=== PATIENT | male | born 1940 | race Caucasian/White ===

== ENCOUNTER 2018-08-04 03:37 | Emergency (ER) | payer MEDICARE, OTHER ==
[2018-08-04] MEDS ORDERED: Ondansetron PF 4 MG/2 ML Vial ONE (04:44)
[2018-08-04 05:12] LABS: #Lymphocytes 0.9 thou/uL (1.20-3.40); #Neutrophils 16.1 thou/uL (1.40-6.50); %Eosinophils 0.1 % (0.0-10.0); %Lymphocytes 4.9 % (21.0-51.0); %Monocytes 10.4 % (0.0-10.0); %Neutrophils 84.5 % (42.0-75.0); Hemoglobin 14.2 g/dL (14.0-18.0); Mean Corpuscular HGB CONC 34.4 g/dL (32.0-36.0); Mean Corpuscular Hemoglobin 30.6 pg (27.0-31.0); Mean Corpuscular Volume 89.1 fL (78.0-98.0); Mean Platelet Volume 7.8 fL (7.4-10.4); Platelet Count 169 thou/uL (130-400); RBC Distribution Width 11.7 % (11.5-14.5); Red Blood Cell (RBC) Count 4.64 mill/uL (4.70-6.10); White Blood Cell (WBC) Count 19.1 thou/uL (4.8-10.8)
[2018-08-04 05:33] LABS: ALT (SGPT) 20 U/L (8-55); AST (SGOT) 12 U/L (5-34); Albumin 3.9 g/dL (3.4-4.8); Alkaline Phosphatase 111 U/L (40-150); Anion Gap 16 mmol/L (10-20); BUN (Urea Nitrogen) 20 mg/dL (8.4-25.7); Bilirubin, Total 0.7 mg/dL (0.2-1.2); Calc. Creatinine Clearance 0 mL/min (70-130); Calcium 9.5 mg/dL (7.8-10.44); Carbon Dioxide 22 mmol/L (23-31); Chloride 98 mmol/L (98-107); Estimated GFR-MDRD 61; Globulin 3.1 g/dL (2.4-3.5); Glucose 272 mg/dL (83-110); Potassium 4.3 mmol/L (3.5-5.1); Sodium 132 mmol/L (136-145)
[2018-08-04] MEDS ORDERED: Doxycycline 100 MG CAP PO SCH (08:00)
--- NOTE | 2018-08-04 08:31 | RAD ---
PORTABLE UPRIGHT FRONTAL CHEST RADIOGRAPH: DATE: 08/04/2018. COMPARISON: None. HISTORY: Nausea and vomiting. FINDINGS: Minimal linear density in the medial aspect of both lung bases noted. This likely represents mild va scular prominence or volume loss. Midline sternotomy wires are present. No pneumothorax, pleural fl uid, lobar consolidation or alveolar edema. IMPRESSION: No focal consolidation or alveolar edema. POS: [facility]
--- NOTE | 2018-08-04 08:40 | CT ---
PRELIMINARY REPORT/[facility]/EMERGENTY AFTER-HOURS PROCEDURE CT Head Without Contrast EXAM DATE/TIME: 08/04/2018 4:43 AM CLINICAL HISTORY: 78 years old, male; Pain; Other: Cant move neck; Patient HX: Weston presents to ed for multiple complain ts. PT reports he stopped being able to move his neck friday. PT reports sleeping more and being t ired all the time. PT had a cold last week. PT began vomiting around 11: 30 pm, denies diarrhea. Hx-d iabetic, heart surgery, asbestos. TECHNIQUE: Axial computed tomography images of the head/brain without contrast. COMPARISON: No relevant prior studies available. FINDINGS: Brain: Volume loss and chronic small vessel ischemic change. No brain edema. No intracranial hemorrha ge. Ventricles: Normal. No ventriculomegaly. Bones/joints: Normal. No acute fracture. Sinuses: Because of thickening and equivocal trace fluid level in the left maxillary sinus and left a nterior ethmoid air cells, potentially representing sinusitis. Mastoid air cells: Normal as visualized. No mastoid effusion. Soft tissues: Normal. IMPRESSION: 1. No acute brain findings. 2. Because of thickening and equivocal trace fluid level in the left maxillary sinus and left anterio r ethmoid air cells, potentially representing sinusitis. Thank you for allowing us to participate in the care of your patient. Dictated and Authenticated by: Nabor Reynoso MD 08/04/2018 6:20 AM Central Time ([place] & [place]) FINAL REPORT HEAD CT WITHOUT CONTRAST: COMPARISON: None. HISTORY: Somnolence, pain, inability to move neck. FINDINGS: I agree with the preliminary [facility] report dictated by Dr. Nabor Reynoso. There is mild mucosal thi ckening involving maxillary sinus and ethmoid air cells on the left as well as left frontal sinus. No acute osseous abnormality. No intracranial hemorrhage, midline shift, or mass effect. There is p eriventricular white matter hypodensity suggesting small-vessel disease. IMPRESSION: No intracranial hemorrhage, midline shift, or mass effect. POS: [facility]
--- NOTE | 2018-08-04 08:42 | CT ---
PRELIMINARY REPORT/[facility]/EMERGENTY AFTER-HOURS PROCEDURE CT Cervical Spine Without Contrast EXAM DATE/TIME: 08/04/2018 4:43 AM CLINICAL HISTORY: 78 years old, male; Pain; Other: Cant move neck; Patient HX: Weston presents to ed for multiple complain ts. PT reports he stopped being able to move his neck friday. PT reports sleeping more and being t ired all the time. PT had a cold last week. PT began vomiting around 11: 30 pm, denies diarrhea. Hx-d iabetic, heart surgery, asbestos. TECHNIQUE: Axial computed tomography images of the cervical spine without intravenous contrast. COMPARISON: No relevant prior studies available. FINDINGS: Vertebrae: No acute fracture. Normal alignment. Discs/Spinal canal/Neural foramina: No spinal stenosis. No neural foraminal narrowing. Soft tissues: Unremarkable. Lungs: Lung apices are normal. IMPRESSION: No acute findings. Thank you for allowing us to participate in the care of your patient. Dictated and Authenticated by: Nabor Reynoso MD 08/04/2018 6:26 AM Central Time ([place] & [place]) FINAL REPORT EMERGENCY AFTER HOURS STUDY CT CERVICAL SPINE NONCONTRAST: DATE: 08/04/2018. TIME: 4:45 a.m. HISTORY: A 78-year-old male with cervical immobility for several days. FINDINGS: There are no jumped or perched facets. There is no evidence of acute fracture. The vertebral body h eights are maintained. There is no prevertebral soft tissue swelling. There are no high-grade degen erative facet changes. There are partially calcified focal central disk herniations and broad-based disk-osteophytic bar complexes, encroaching upon the anterior aspect of the spinal canal at all level s from 2-3 through C6-7. There is mild to moderate disk space narrowing at C4-5, especially C5-6, an d C6-7. There is mild disk space narrowing all other levels. Small to moderate-sized uncinate proce ss osteophytes encroach upon the neural foramina causing bilateral neural foraminal stenosis of varyi ng degrees at multiple levels, including high grade. No soft tissue swelling or abscess identified i n the retropharyngeal or prevertebral spaces. No major disagreement with preliminary report by [facility] . Minor disagreement regarding neuroforaminal stenosis. IMPRESSION: 1. No evidence of acute fracture or acute traumatic subluxation. 2. Cervical spondylosis consisting of multilevel degenerative disk disease and multilevel bilateral neural foraminal stenosis. mikaela POS: [facility]
== END 2018-08-04 08:25 | disposition home or self-care (01) ==
LOC: ERS 03:37
DX: R11.2 Nausea with vomiting, unspecified (principal); J32.9 Chronic sinusitis, unspecified; E11.9 Type 2 diabetes mellitus without complications; E78.5 Hyperlipidemia, unspecified; I10 Essential (primary) hypertension; Z79.899 Other long term (current) drug therapy; Z79.82 Long term (current) use of aspirin; Z79.84 Long term (current) use of oral hypoglycemic drugs
CPT/HCPCS: 36415; 70450; 71045; 72125; 80053; 84484; 85025; 93005; 96361; 96374; J2405

== ENCOUNTER 2018-10-13 14:07 | Outpatient (CLI) | payer OTHER ==
--- NOTE | 2018-10-13 16:05 | RAD ---
PA AND LATERAL VIEWS OF THE CHEST: HISTORY: Asbestosis FINDINGS: There are changes of median sternotomy. The heart size is normal. The aorta is tortuous. The lungs are expanded without focal areas of consolidation, pneumothoraces, or pleural effusions. No calcifi ed pleural plaques are seen. There are mild degenerative changes in the spine. IMPRESSION: No radiographic evidence of acute cardiopulmonary process. POS: [facility]
--- NOTE | 2018-10-15 10:24 | PFT ---
PATIENT HISTORY: HEIGHT: 66 IN WEIGHT: 165 LBS SMOKER: NO HOW LON YRS PACKS PER DAY .75 PRODUCTIVE COUGH: LUNG DISEASE: PHYSICIAN INTERPRETATION PFT data: FEV1 1.12 L 44% predicted, FVC 1.47 L 42% predicted. There was significant improvement in the FEV1, approximally 35%, after bronchodilator administration. FEV1/FVC 0.76. Total lung capacity and Residual volume and DLCO readings are erroneous, and should be ignored. IMPRESSION: The FEV1/FVC ratio and flow volume loop suggestive of a restrictive pulmonary impairment. I believe that the improvement in FEV1 may be solely due to patient effort and not necessarily due to the effect of the bronchodilator. The inaccurate readings seem to be in part form patient having difficulty performing the test. [employer] Electronics Engineer: DEBORAH Nurse Intern: DEBORAH GAR
== END 2018-10-13 14:08 | disposition home or self-care (01) ==
LOC: CP 14:07
PROVIDERS: ATTEND Orthopaedic Surgery
DX: Z77.090 Contact with and (suspected) exposure to asbestos (principal)
CPT/HCPCS: 71046; 94060; 94727; 94729